=== PATIENT | male | born 1930 | race Caucasian/White ===

== ENCOUNTER 2017-03-03 08:37 | Inpatient (IN) | payer MEDICARE, BC ==
[~2017-03-03] VITALS: Ht 170.2 cm; Wt 101.2 kg
--- NOTE | ~2017-03-03 | ECH ---
Transthoracic Echocardiography Report (TTE) Demographics Patient Name CHENTE HUTCHINS Date of Study 03/03/2017 Patient Number [id number] Visit Number [id number] Date of 1930 Room Number 313 Accession Number [id number] Gender Male Age 87 year(s) Referring Aquiles WALTERS Fur Vault Attendant Aracely Lundberg Physician Karl [facility] Tracy Shepherd Physician Interpreting Aquiles WALTERS Aeroplane Pilot Physician Karl Supervising Ordering Physician Tracy Shepherd MD/MLP Nurse Stress Bed Maker Conclusions Contractility Score Summary Normal Left Ventricular contractility was noted. Summary Technically adequate exam. The estimated left ventricular ejection fraction is 60-65%. Diastolic assessment reveals Grade I diastolic dysfunction. No significant valvular abnormalities. Recommendation The patient will be given the results of this study by the physician who ordered the exam. Procedure Type of Study TTE procedure:Echo Complete SF. Procedure Date Date: 03/03/2017 Start: 02:55 PM Technical Quality: Adequate visualization Indications:Supraventricular Tachycardia and Hypotension. Appropriate Use Criteria: 9 Height: 67 inches Weight: 213 pounds BSA: 2.08 m Rhythm: NSR HR: 92 bpm BP: 118/81 mmHg M-Mode/2D Measurements LV Diastolic Dimension: 5.15 cm LV Systolic Dimension: 3.63 cm LV Septum Diastolic: 0.7 cm LV PW Diastolic: 0.7 cm AO Root Dimension: 3.15 cm Cardiac Output: 4.49 l/min LA Dimension: 2.7 cm Cardiac Index: 2.16 l/min*m RV Diastolic Dimension: 3.11 cm LA volume index: 26 ml/m LVOT: 1.97 cm LVOT VTI: 16.01 cm RV Base: 2.8 cm LV Stroke volume: 48.77 ml RV Mid: 1.9 cm LV Stroke volume index: 23.45 ml/m TAPSE: 1.7 cm TDI-S': 13 cm/s Doppler Measurements AV Peak Velocity: 1 m/s MV Peak E-Wave: 0.71 m/s AV Peak Gradient: 4 mmHg MV Peak A-Wave: 0.9 m/s AV Mean Gradient: 2.32 mmHg MV E/A Ratio: 0.79 LVOT Peak Velocity: 0.72 m/s MV P1/2t: 30.3 msec AV Area (Continuity):2.57 cm MV Deceleration Time: 104.3 msec MV Area (PHT): 7.27 cm PV Peak Velocity: 0.91 m/s E' Septal Velocity: 0.07 m/s PV Peak Gradient: 3.31 mmHg E' Lateral Velocity: 0.06 m/s A' Septal Velocity: 0.11 m/s A' Lateral Velocity: 0.1 m/s RA Area: 12.77 cm Findings Left Ventricle Normal left ventricle size and function. Diastolic assessment reveals Grade I diastolic dysfunction. Right Ventricle Normal right ventricle structure and function. Left Atrium Normal left atrial size. Right Atrium Normal right atrial size. Mitral Valve Normal mitral valve structure and function. Trivial mitral regurgitation by color Doppler. Aortic Valve Normal aortic valve structure and function. Tricuspid Valve Normal tricuspid valve structure and function. Trivial tricuspid regurgitation by color Doppler. Insufficient jet to calculate pulmonary pressures. Pulmonic Valve The pulmonic valve is not well visualized. Trivial pulmonic valve regurgitation by color Doppler. Pericardial Effusion No evidence of pericardial effusion. Miscellaneous Visualized portions of the aortic root and ascending aorta appear normal in size. Pleural Effusion No evidence of pleural effusion. Contractility Score LV regional wall motion:(0-Non visualized 1-Normal 2-Hypokinesis 3-Akinesis 4-Dyskinesis 5-Aneurysm) Signature
[~2017-03-03 08:37] MED LIST: ARICEPT DPS5 MG PO; CARAFATE DPS1 GM PO; CEFTIN DPS500 MG PO; CEPACOL SORE T1 EACH PO; DELTASONE DPS20 MG PO; DUONEB DPS3 ML IH; OCEAN NASAL MIS45 ML NS; PEPCID DPS20 MG PO; PROVENTIL2.5 MG/3 M IH; ROBITUSSIN200 MG/10 PO; TESSALON PERLE100 M1 PO; TYLENOL DPS325 MG PO; ZOCOR DPS40 MG PO
--- NOTE | 2017-03-07 06:29 | HP ---
ADMIT: 03/03/2017 RM/LOC: 313 [facility] MR#: [id number] [address] [address] CHENTE [place] [address] History and Physical SEX: M AGE: 87 : 1930 DATE OF SERVICE: CHIEF COMPLAINT: Cough and weakness. HISTORY OF PRESENT ILLNESS: The patient is an 87-year-old patient, who presents with a bad cough and low blood pressure, sent to the emergency room. Son is here now and says he had a worsening cough over the last months but it has been much worse over the last 4 days. It seems like it wears him out and they have been giving him some cough medicines, does not seem to be helping. He has not been running a fever but has been getting progressively weaker and finally quit eating and drinking much over the last 4 days also. His blood pressure was noted to be low this morning that prompted his transfer to the ER. PAST MEDICAL HISTORY: The patient was admitted to the facility with acquired pneumonia a year ago. He has a reported history of COPD, though he has never been a smoker. Also, has chronic kidney disease stage 3, Alzheimer's dementia, depression and hyperlipidemia. PAST SURGICAL HISTORY: Include right total knee arthroplasty. MEDICATIONS: 1. DuoNeb q.i.d. and q.2 hours p.r.n. 2. Acetaminophen 325 mg 2 tabs b.i.d. 3. Loperamide 2 mg p.r.n. diarrhea. 4. NutraShield to lower extremities at bedtime. 5. Furosemide 40 mg b.i.d. 6. Potassium chloride 20 mEq daily. 7. Deep Sea Nasal [place] 2 sprays q.i.d. 8. Acetaminophen 650 mg q.4 hours p.r.n. 9. Donepezil 10 mg at bedtime. 10.Sucralfate 1 g t.i.d. before meals. 11.Proventil 2 puffs inhaler q.4 hours p.r.n. 12.Calamine topically daily. 13.Cephalexin just prior to surgeries. ALLERGIES: TO CHOCOLATE. SOCIAL HISTORY: The patient has never been a smoker. He and his both live at the [facility] for about 3 years now for dementia. He used to drink but has not drank in several years. No drug use. He is a of the [place]. FAMILY HISTORY: Father had severe emphysema and was a heavy smoker. REVIEW OF SYSTEMS: Unable to obtain other than what is described in the HPI due to his mental status. PHYSICAL EXAMINATION: GENERAL: The patient is afebrile. ADMIT: 03/03/2017 RM/LOC: 313 [facility] MR#: [id number] [address] [address] [place] [address] History and Physical SEX: M AGE: 87 : 1930 VITAL SIGNS: Blood pressures are now in the 90s over 50s with the MAP of 70 currently. Pulse is 165. GENERAL: He is alert but confused. No acute distress. He is on 4 L with sats of 99%. HEENT: Head is atraumatic and normocephalic. Sclerae are clear. Pupils are round and reactive. Nares are patent with minimal congestion. Oropharynx looks moist. NECK: Supple with no lymphadenopathy, thyromegaly, or JVD. HEART: Tachycardic but regular. LUNGS: Rhonchi in bases and have expiratory wheezes throughout. ABDOMEN: Soft and nondistended. Seems nontender with good bowel sounds and no masses. EXTREMITIES: 1+ edema bilaterally. He has mild patchy redness to the anterior aspect of both shins. 2+ dorsalis pedis pulses. He is confused but no other focal neurologic changes are noted. LABORATORY DATA: Hemoglobin is 12.7, white count 7.8, platelets 335. BUN 26, creatinine 1.8, glucose 126, potassium 4.2, albumin 3.0, CK 76. Troponin I less than 0.015. ProBNP is 1780. Procalcitonin 0.28. Lactic acid 1.2. PTT 23.8, INR less than 1. Chest x-ray shows bilateral opacities without possible right upper lobe infiltrate. ASSESSMENT: 1. Septic shock. 2. Facility-acquired pneumonia. 3. Supraventricular tachycardia. 4. Acute hypoxic respiratory failure. 5. Chronic kidney disease. 6. Chronic obstructive pulmonary disease with acute exacerbation. 7. Dehydration. PLAN: Cardiology has been consulted and will await their recs. Currently, he is asymptomatic with MAP of 70, so we will just continue with IV fluids but if the pressors needed, we will get their input. We will also see if they recommend any treatment for his SVT. Antibiotics have been ordered with Levaquin, Zosyn, and vancomycin and cultures have been drawn. Respiratory will do respiratory hygiene protocol. We will check a respiratory viral panel. We will place a catheter for strict I's and O's. We did review with son and he does wish to be a DNR/DNI. We will make any changes based on his clinical course indication. Cora Molina MD/ bonilla JOB #: [id number] CC: Cora Molina, Attending Physician ADMIT: 03/03/2017 RM/LOC: 313 [facility] MR#: [id number] [address] [address] [place] [address] History and Physical SEX: M AGE: 87 : 1930 [facility] Physician, Family Physician
[2017-03-08] MEDS ORDERED: KLOR-CON M2020 ME1 PO (19:41)
[2017-03-08] MEDS ORDERED: LASIX DPS40 MG PO (19:41)
[2017-03-08] MEDS ORDERED: ARICEPT DPS5 MG PO (19:41)
[2017-03-08] MEDS ORDERED: CARAFATE DPS1 GM PO (19:41)
[2017-03-08] MEDS ORDERED: TYLENOL DPS325 MG PO ×2 (19:42→19:44)
[2017-03-08] MEDS ORDERED: DUONEB DPS3 ML IH ×2 (19:42→19:44)
[2017-03-08] MEDS ORDERED: METOPROLOL TART25 MG PO (19:42)
[2017-03-08] MEDS ORDERED: OCEAN NASAL MIS45 ML NS (19:43)
[2017-03-08] MEDS ORDERED: MAALOX DPS30 ML PO (19:43)
[2017-03-08] MEDS ORDERED: IMODIUM DPS2 MG PO (19:43)
[2017-03-08] MEDS ORDERED: SURFAK DPS240 MG PO (19:44)
[2017-03-08] MEDS ORDERED: TYLENOL-DPS650 MG PR (19:45)
[2017-03-08] MEDS ORDERED: NITROSTAT0.4 MG SL (19:45)
--- NOTE | 2017-03-08 20:52 | CO ---
ADMIT: 03/03/2017 RM/LOC: 313 [facility] MR#: [id number] [address] [address] [place] [address] Consultation SEX: M AGE: 87 : 1930 DATE OF CONSULTATION: 03/03/2017 ATTENDING PHYSICIAN: Cora Molina CONSULTING PHYSICIAN: Karl Kwan MD REASON FOR CONSULT: SVT. Rajani Quijano RN, scribing for Karl Kwan MD. HISTORY OF PRESENT ILLNESS: Chente is a pleasantly confused 87-year-old gentleman, I have been asked to see in Cardiology consultation by Dr. Molina for SVT. He has no prior history, documented of coronary artery disease. He lives at the [facility] and has history of Alzheimer's dementia, oriented to name only. He presented with facility-acquired pneumonia and sepsis. In the emergency room, he was in SVT with heart rates in the 160s with blood pressures in the 70s. He has converted to sinus rhythm in the 90s with blood pressure improved to 118 systolic. He is pleasantly confused and apparently, he is a [employer] at the [facility]. He does have significant edema in his lower extremity, which family reported to nursing is new. Asking him directly today, he denies any chest pain currently but does complain of shortness of breath. He is afebrile. Lab work does show elevated creatinine of 1.8 with BUN of 26. It was documented last year that he had chronic kidney disease. Cardiac enzymes x1 have been negative. Chest x-ray demonstrated bilateral opacities but no significant pleural effusions noted. PAST MEDICAL HISTORY: Per chart, Alzheimer's dementia, chronic kidney disease, history of anemia, depression, and COPD. ALLERGIES: TO CODEINE. MEDICATIONS: Home medications listed include: 1. DuoNeb 4 times daily. 2. Acetaminophen 650 mg twice daily. 3. DuoNeb every 2 hours as needed. 4. Loperamide 4 mg onset of loose stools and 2 mg as needed. 5. NutraShield at bedtime to lower leg. 6. Furosemide 40 mg p.o. twice daily. 7. Potassium chloride 20 mEq p.o. daily. 8. Sodium chloride nasal spray four times a day. 9. Acetaminophen as needed. 10.Donepezil 10 mg at bedtime. 11.Sucralfate 1 g three times daily before meals. 12.Proventil inhaler 90 mcg every 4 hours p.r.n. FAMILY HISTORY: Unobtainable. SOCIAL HISTORY: Chente lives at the [facility]. He has Alzheimer's dementia. Other information unobtainable. ADMIT: 03/03/2017 RM/LOC: 313 [facility] MR#: [id number] [address] [address] [place] [address] Consultation SEX: M AGE: 87 : 1930 REVIEW OF SYSTEMS: Unobtainable due to the patient's severe dementia. PHYSICAL EXAMINATION: VITAL SIGNS: Blood pressure 118/81, heart rate 97, respirations 24, temperature 97.1, oxygenation 99% on O2. SKIN: [place], warm and dry. EYES: Sclerae clear. No xanthelasmas. ENT: Oral mucosa is pink and moist. No carotid bruits. JVP difficult to visualize. LUNGS: Inspiratory and expiratory wheezes. HEART: Distant breath sounds. No murmurs, gallops, or rubs. ABDOMEN: Obese and nontender. MUSCULOSKELETAL: Gait is normal. EXTREMITIES: Peripheral pulses palpable. 2 to 3+ pitting edema bilaterally. PSYCHIATRIC: Alert and oriented. Mood and affect are appropriate. GENERAL: No acute distress. Alert and confused, oriented to person only. DIAGNOSTIC DATA: Chest x-ray on 03/03/2017 showed bilateral opacities. No pleural effusion. Sodium 140, potassium 4.2, BUN 26, hematocrit 1.8, glucose 126. AST 33, ALT 38, magnesium 2.4, CK 76, MB 0.9. Troponin less than 0.015. ProBNP 1780. White blood cell count 7.8, hemoglobin 12.7, hematocrit 41.4 platelets 335. ASSESSMENT AND PLAN: 1. Supraventricular tachycardia, likely precipitated by sepsis. Terminated on its own. I will add p.r.n. Lopressor and adenosine if needed. If pressors are needed, we would use after load medications like Deacon- Synephrine for that. I will check echocardiogram for any wall motion abnormalities, valvular abnormalities, or decreased ejection fraction. 2. Sepsis, blood pressure better. 3. Pneumonia. 4. Chronic kidney disease. Thank you for the consult. "I have read and agree with the documentation that has been completed regarding this visit. By signing this record, I attest that the documentation was completed in my physical presence and is an accurate record of the encounter." Rajani Quijano RN / Karl Kwan MD / justinal JOB #: [id number] CC: Cora Molina, Attending Physician [facility] Physician, Family Physician
[2017-03-12] MEDS ORDERED: CARAFATE DPS1 GM PO (15:54)
[2017-03-12] MEDS ORDERED: ARICEPT10 MG PO (15:54)
[2017-03-12] MEDS ORDERED: KLOR-CON M2020 ME1 PO (15:55)
[2017-03-12] MEDS ORDERED: DELTASONE DPS20 MG PO (15:55)
[2017-03-12] MEDS ORDERED: DUONEB DPS3 ML IH ×2 (15:55→15:58)
[2017-03-12] MEDS ORDERED: TYLENOL DPS325 MG PO ×2 (15:55→15:57)
[2017-03-12] MEDS ORDERED: LOPRESSOR DPS50 MG PO (15:55)
[2017-03-12] MEDS ORDERED: DELTASONE DPS10 MG PO (15:55)
[2017-03-12] MEDS ORDERED: OCEAN NASAL MIS45 ML NS (15:56)
[2017-03-12] MEDS ORDERED: MYCOSTATIN PWD15 GM TP (15:56)
[2017-03-12] MEDS ORDERED: MAALOX DPS30 ML PO (15:57)
[2017-03-12] MEDS ORDERED: COLACE-DPS100 MG PO (15:57)
[2017-03-12] MEDS ORDERED: ROBITUSSIN200 MG/10 PO (15:57)
[2017-03-12] MEDS ORDERED: IMODIUM DPS2 MG PO (15:57)
[2017-03-12] MEDS ORDERED: PROVENTIL2.5 MG/3 M IH (15:58)
[2017-03-12] MEDS ORDERED: NITROSTAT0.4 MG SL (15:58)
--- NOTE | 2017-03-19 15:23 | ER ---
ADMIT: 03/03/2017 RM/LOC: 313 [facility] MR#: [id number] [address] [address] [place] [address] Emergency Room Report SEX: M AGE: 87 : 1930 DATE: 03/03/2017 ADDENDUM: An 87-year-old white male coming in with cough. He is tachycardic. He had a little low blood pressure. We worked him up as a sepsis. White count, lactate is negative. However, his BP showed a MAP at 59. Since he screens positive, we are treating him as a sepsis, plus chest x-ray does show bilateral infiltrates. He is demented. He has a degree of COPD. While he apparently had SVT, it kind of comes and goes. Sometimes he almost coughs himself out of it and then it goes down to the 90s and maintains. His pressure does not change. His blood pressure is stabilized no matter what his heart rate is. Erica has a contraindication to lung disease, so chose not to do that. Other medications would just lower his pressure. At this time, we are going to continue treating his pneumonia fluid, seeing if his heart rate will gradually come down. I spoke with Dr. Molina, she will admit. He will be admitted to the unit. CONDITION ON DISCHARGE: Critical, but stable at this time. Chris Frankel MD/ bonilla JOB #: [id number] CC: Cora Molina MD, Attending Physician [facility] Physician, Family Physician
--- NOTE | 2017-03-26 09:07 | DS ---
ADMIT: 03/03/2017 RM/LOC: 416 [facility] MR#: [id number] [address] [address] [place] [address] General Discharge Summary SEX: M AGE: 87 : 1930 ADMISSION DATE: 03/03/2017 DISCHARGE DATE: 03/07/2017 FINAL DIAGNOSES: 1. Septic shock with severe sepsis. 2. Pneumonia, facility acquired. 3. Supraventricular tachycardia. 4. Acute hypoxic respiratory failure. 5. Chronic kidney disease. 6. Chronic obstructive pulmonary disease with acute exacerbation. 7. Dehydration. REASON FOR ADMISSION: The patient is an 87-year-old white male, who was transferred from the [facility] due to bad cough and low blood pressure. He had had a chronic cough, but it had been getting worse over the last 4 days. No fever, but he was not eating or drinking well the last couple of days and had a low blood pressure noted at the [facility], so was transported to the ER. He was noted to have low blood pressure but responded to a fluid bolus in the ER. Pulse remained high though at 165, looked like it was a regular rhythm. Sats were 99% on 4 L. He was alert but confused. Lungs had rhonchi throughout with some wheezing. He had 1+ edema as well and some mild redness to the anterior lower legs. Chest x-ray showed bilateral opacities and a right upper lobe infiltrate. His lactic acid level was normal though at 1.2. HOSPITAL COURSE: The patient was admitted and started on Levaquin, Zosyn, and vancomycin along with Solu-Medrol. Cardiology was consulted for his SVT. Cardiac enzymes were followed. Speech Therapy was consulted. RT followed and did DuoNebs and respiratory hygiene as well. The patient did have a Elliott catheter placed and on placement of that ended up converting into a normal sinus rhythm spontaneously. He did have a couple of short bouts of SVT later in the hospitalization, but they were very short-lived and did not have anything further sustain. Did have an order for p.r.n. Lopressor to use per Cardiology. Speech Therapy adjusted his diet. He did improve over the next few days and blood pressures remained stable and he never did require any pressors. His steroids were gradually weaned, as was his oxygen down to his baseline of 2 L. His Elliott was discontinued on the as well as his vancomycin as cultures were coming back negative. By the , he was felt safe to return to the [facility]. Follow up with the doctor there. DISCHARGE INSTRUCTIONS: The patient's medications include: 1. Aricept 10 mg at bedtime. 2. Carafate 1 g before meals t.i.d. 3. Klor-Con 20 mEq daily. 4. Lasix 40 mg b.i.d. 5. Lopressor 25 mg b.i.d. 6. Tylenol 650 mg b.i.d. ADMIT: 03/03/2017 RM/LOC: 416 [facility] MR#: [id number] [address] [address] [place] [address] General Discharge Summary SEX: M AGE: 87 : 1930 7. DuoNeb q.i.d. 8. Nasal spray 2 sprays in each nostril q.i.d. 9. Imodium 2 to 4 mg p.r.n. diarrhea. 10.Maalox 30 mL q.6 hours p.r.n. 11.Surfak 240 mg b.i.d. p.r.n. 12.Tylenol 650 mg q.4 hours p.r.n. 13.DuoNeb q.2 hours p.r.n. 14.Sublingual nitroglycerin every 5 minutes p.r.n. 15.Levaquin 500 mg p.o. daily for another week. We will continue him on oral prednisone taper. He is a DNR/DNI. We will continue with PT and OT and oxygen at 2-4 L. Cora Molina MD/ bonilla JOB #: [id number] CC: Cora Molina MD, Attending Physician [facility] Physician, Family Physician
== END 2017-03-07 11:15 | DRG 871 ==
LOC: ER 08:37 → 3ICU 10:35 → 4PCU 03-06 13:36
PROVIDERS: ADMIT Family Medicine
DX: A41.9 Sepsis, unspecified organism (principal); R65.21 Severe sepsis with septic shock; J96.01 Acute respiratory failure with hypoxia; J18.9 Pneumonia, unspecified organism; J44.0 Chronic obstructive pulmonary disease with (acute) lower respiratory infection; N18.3 Chronic kidney disease, stage 3 (moderate); G30.9 Alzheimer's disease, unspecified; Z99.81 Dependence on supplemental oxygen; F02.80 Dementia in other diseases classified elsewhere, unspecified severity, without behavioral disturbance, psychotic disturbance, mood disturbance, and anxiety; J44.1 Chronic obstructive pulmonary disease with (acute) exacerbation; I47.1 Supraventricular tachycardia; E86.0 Dehydration; F32.9 Major depressive disorder, single episode, unspecified; E78.5 Hyperlipidemia, unspecified; Z96.651 Presence of right artificial knee joint; Z66 Do not resuscitate

== ENCOUNTER 2017-03-09 00:40 | Inpatient (IN) | payer MEDICARE, BC ==
[~2017-03-09] VITALS: Ht 170.2 cm; Wt 99.7 kg
[~2017-03-09 00:40] MED LIST changes: +IMODIUM DPS2 MG PO; +KLOR-CON M2020 ME1 PO; +LASIX DPS40 MG PO; +MAALOX DPS30 ML PO; +METOPROLOL TART25 MG PO; +NITROSTAT0.4 MG SL; +SURFAK DPS240 MG PO; +TYLENOL-DPS650 MG PR
--- NOTE | 2017-03-09 19:21 | ER ---
ADMIT: 03/09/2017 RM/LOC: 408 [facility] MR#: [id number] [address] [address] CHENTE HUT[place] [address] Emergency Room Report SEX: M AGE: 87 : 1930 DATE: 03/09/2017 CHIEF COMPLAINT: Cough. HISTORY OF PRESENT ILLNESS: The patient is an 87-year-old male, resident of [facility], transferred tonight for increasing respiratory distress, hypotension, and hypoxemia. The patient was hospitalized here through the 07 of March for COPD, possible healthcare-acquired pneumonia. The patient does have chronic pleural plaques from asbestos. The patient denies any pain, fevers, chills, nausea, or vomiting. PAST MEDICAL HISTORY: ILLNESSES: COPD, possible healthcare-acquired pneumonia, hyperlipidemia, Alzheimer's, depression, and stage 3 chronic kidney disease. OPERATIONS: Right total knee arthroplasty. ALLERGIES: NONE EXCEPT CHOCOLATE. MEDICATIONS: Please see [place] MAR. SOCIAL HISTORY: Never smoked. Occasional alcoholic beverage, none recently. FAMILY HISTORY: Positive for COPD. REVIEW OF SYSTEMS: Not entirely reliable due to dementia. PHYSICAL EXAMINATION: VITAL SIGNS: Temp 97.6, pulse 138, respirations 16, BP 92/63, and SaO2 95% on 2 L. GENERAL: Nontoxic, non-diaphoretic without jaundice or icterus. HEENT: Normocephalic. No evidence of epistaxis, rhinorrhea, or otorrhea. NECK: Supple without lymphadenopathy or thyromegaly. CHEST: Breath sounds equal with inspiratory crackles and expiratory wheeze, right greater than left. HEART: Tachycardic, irregular without murmur, gallop, 2+ pedal ankle edema. ABDOMEN: Obese. Bowel sounds hypoactive. BACK: No CVA tenderness. EXTREMITIES: No evidence of Homans sign, synovitis, or dermatitis. NEUROLOGIC: EOMI, PERRLA. MEDICAL DECISION MAKING: EKG shows atrial fibrillation with rapid ventricular response, new from prior. Chest x-ray shows COPD changes with pleural plaques unchanged from previous. CT without contrast shows pleural plaques, but no definite infiltrate. WBC 12.6, hemoglobin 11.8, lactic 1.2, CRP 0.32, creatinine 1.6, glucose 160. Procalcitonin pending. D-dimer 1.76. BNP 3539 up from 1700 from last week. The patient was given 2 DuoNeb, fluid bolus 30 mL/kg, Cardizem 20 mg bolus and 10 mg per hour drip with intermittent ADMIT: 03/09/2017 RM/LOC: 408 [facility] MR#: [id number] [address] [address] [place] [address] Emergency Room Report SEX: M AGE: 87 : 1930 conversion, then Lovenox mg per kg SC. Case complicated by acute pulmonary edema after fluid bolus for sepsis, treated with morphine 2 mg IVP and furosemide 40 mg IVP and additional DuoNebs. Patient ultimately converted to sinus bradycardia. Discussed case with Dr. Hand, who agreed and gave orders to nursing staff due to the patient's presentation, findings, and intervention, 90 minutes of critical care is warranted. DIAGNOSES: 1. Chronic obstructive pulmonary disease with exacerbation. 2. Paroxysmal atrial fibrillation with rapid ventricular response. 3. Dementia. RECOMMENDATION: Admit inpatient ICU for Dr. Hand. ADMISSION CONDITION: Fair. The patient is a DNR/DNI. Marcel Zaidi MD/ bonilla JOB #: [id number] CC: Dereje Hand DO, Attending Physician Dereje Hand DO, Family Physician
--- NOTE | 2017-03-12 08:25 | HP ---
ADMIT: 03/09/2017 RM/LOC: 408 [facility] MR#: [id number] [address] [address] [place] [address] History and Physical SEX: M AGE: 87 : 1930 DATE OF SERVICE: REASON FOR HOSPITALIZATION: SVT and atrial fibrillation. HISTORY OF PRESENT ILLNESS: An 87-year-old male patient, who was recently hospitalized with pneumonia and SVT. I do not have a lot a record available at this time from that hospitalization but he was apparently treated, and then returned back to the [facility] in the recent past. He returned to the [facility] with atrial fibrillation, rapid ventricular response, and hypotension. In the emergency room, he was given IV Cardizem and he had episodes of conversion to normal sinus rhythm. While in atrial fibrillation, he was hypotensive. He does have a past medical historyof asbestosis, COPD, pneumonia, CKD stage III, dementia, depression, hypercholesterolemia, and osteoarthritis. MEDICATIONS: Include: 1. Tylenol. 2. Donepezil. 3. [place] nasal spray. 4. DuoNeb. 5. Lasix. 6. Levaquin. 7. Metoprolol. 8. Potassium. 9. Prednisone. 10.Carafate. 11.Imodium. 12.Guaifenesin. 13.Proventil puffer. SOCIAL HISTORY: [facility]. He has not been a heavy smoker. REVIEW OF SYSTEMS: He simply wants to get up. He is a little agitated about being bed-bound at this time. He denies any problems of shortness of breath, nausea, vomiting, diarrhea, or bleeding. PHYSICAL EXAMINATION: GENERAL: Again, he wants out of bed. He is alert. HEART: Regular. Rate is controlled. LUNGS: Clear but diminished in the bases. He has 2+ edema in the lower extremities. ABDOMEN: Soft. ADMIT: 03/09/2017 RM/LOC: 408 [facility] MR#: [id number] [address] [address] [place] [address] History and Physical SEX: M AGE: 87 : 1930 LABORATORY DATA: His BUN is 38, creatinine 1.6, hemoglobin 11.8. Chest x-ray shows chronic changes and CAT scan of the chest is pending. IMPRESSION: Paroxysmal atrial fibrillation with supraventricular tachycardia, controlled with Cardizem drip. PLAN: We will admit him to telemetry, on Cardizem drip. I am going to increase his beta maureen and then try to wean the Cardizem. We will add physical therapy, occupational therapy, cover with antibiotics until we have better detail of his pulmonary status with CAT scan. He does have asbestosis which is somewhat confusing with regard to any acute changes on his plain chest film. Dereje Hand DO/ modl JOB #: [id number] CC: Dereje Hand, Attending Physician Dereje Hand, Family Physician
[2017-03-12] MEDS ORDERED: ARICEPT10 MG PO (15:54)
[2017-03-12] MEDS ORDERED: CARAFATE DPS1 GM PO (15:54)
[2017-03-12] MEDS ORDERED: DUONEB DPS3 ML IH ×2 (15:55→15:58)
[2017-03-12] MEDS ORDERED: DELTASONE DPS20 MG PO (15:55)
[2017-03-12] MEDS ORDERED: KLOR-CON M2020 ME1 PO (15:55)
[2017-03-12] MEDS ORDERED: TYLENOL DPS325 MG PO ×2 (15:55→15:57)
[2017-03-12] MEDS ORDERED: LOPRESSOR DPS50 MG PO (15:55)
[2017-03-12] MEDS ORDERED: DELTASONE DPS10 MG PO (15:55)
[2017-03-12] MEDS ORDERED: MYCOSTATIN PWD15 GM TP (15:56)
[2017-03-12] MEDS ORDERED: OCEAN NASAL MIS45 ML NS (15:56)
[2017-03-12] MEDS ORDERED: ROBITUSSIN200 MG/10 PO (15:57)
[2017-03-12] MEDS ORDERED: IMODIUM DPS2 MG PO (15:57)
[2017-03-12] MEDS ORDERED: COLACE-DPS100 MG PO (15:57)
[2017-03-12] MEDS ORDERED: MAALOX DPS30 ML PO (15:57)
[2017-03-12] MEDS ORDERED: NITROSTAT0.4 MG SL (15:58)
[2017-03-12] MEDS ORDERED: PROVENTIL2.5 MG/3 M IH (15:58)
--- NOTE | 2017-04-17 08:00 | DS ---
ADMIT: 03/09/2017 RM/LOC: [address] [facility] [place] MR#: [id number] [address] [id number] [place] [address] General Discharge Summary SEX: M AGE: 87 : 1930 ADMISSION DATE: 03/09/2017 DISCHARGE DATE: 03/11/2017 REASON FOR HOSPITALIZATION: Paroxysmal atrial fibrillation and supraventricular tachycardia. HISTORY: This is an 87-year-old male patient with a history of SVT, came to the emergency room from the [facility] with paroxysm of atrial fibrillation and low blood pressure. He had been dismissed from [facility] just a few days ago after treatment for pneumonia. He does have a history of aortic stenosis, COPD, pneumonia, CKD stage 3, dementia, depression, hyperlipidemia, and osteoarthritis. At the time of presentation, he was awake, but did have some underlying dementia. He stated "I want up." By my initial assessment, his heart was regular. His lungs are clear. He had 2+ edema. Chest x-ray showed changes of chronic disease. HOSPITAL COURSE: He was admitted to the hospital, started on IV Lasix for diuresis and metoprolol. I weaned his Cardizem and added physical therapy and occupational therapy. His rate was controlled. His DNR DNI status was continued. His CT scan did reveal pleural plaques and fibrotic changes thought to be chronic in nature. By 03/10, we started talking about the potential for dismissal back to [facility] and by 03/11, he was stable. His paroxysm of atrial fibrillation had converted back to regular sinus rhythm. COPD was stable. Asbestosis stable. He was hypokalemic and this was replaced. He was to continue his pre-hospital prednisone taper and have a basic metabolic profile performed one week after dismissal. Dereje Hand, / modl JOB #: [id number] CC: Dereje Hand DO, Attending Physician Dereje Hand DO, Family Physician
== END 2017-03-11 13:35 | DRG 308 ==
LOC: ER 00:40 → 4PCU 02:45
PROVIDERS: ADMIT Internal Medicine
DX: I48.0 Paroxysmal atrial fibrillation (principal); J81.0 Acute pulmonary edema; I95.9 Hypotension, unspecified; J44.1 Chronic obstructive pulmonary disease with (acute) exacerbation; L89.892 Pressure ulcer of other site, stage 2; G30.9 Alzheimer's disease, unspecified; N18.3 Chronic kidney disease, stage 3 (moderate); F02.80 Dementia in other diseases classified elsewhere, unspecified severity, without behavioral disturbance, psychotic disturbance, mood disturbance, and anxiety; I47.1 Supraventricular tachycardia; J92.0 Pleural plaque with presence of asbestos; M19.90 Unspecified osteoarthritis, unspecified site; R09.02 Hypoxemia; E78.5 Hyperlipidemia, unspecified; F32.9 Major depressive disorder, single episode, unspecified; Z96.651 Presence of right artificial knee joint; Z66 Do not resuscitate